=== PATIENT | female | born 1990 | race Caucasian/White ===

== ENCOUNTER 2016-12-06 12:56 | Emergency (ER) | payer OTHER ==
[2016-12-06 13:34] VITALS: BP 133/75; PULSE 74; RESP 16; TEMP 98
--- NOTE | 2016-12-06 13:49 | ED ---
ENT HPI - General Chief complaint: Dental/Oral Stated complaint: Dental pain Time Seen by Provider: 12/06/16 13:29 Source: patient, RN notes reviewed Mode of arrival: ambulatory Limitations: no limitations - History of Present Illness Initial comments: Patient is 26-year-old female presents to the emergency room for evaluation of dental pain. Patient states that she is due to get her left bottom wisdom tooth removed. Patient states that due to insurance she has been unable to. Patient states that she was on amoxicillin for dental pain about 2 weeks ago. Patient states that her dentist also wrote her a prescription for 800 mg of ibuprofen. Patient states she noticed some mild swelling on the side of her left lower jaw. Patient denies recent dental trauma. Patient states ibuprofen is not helping her pain. Patient denies fevers, chills, trouble swallowing, shortness of breath, headache, dizziness, ear pain, nausea, vomiting, abdominal pain. Patient states she feels like her tooth is infected again. - Related Data Home Medications Medication Instructions Recorded Confirmed ALPRAZolam [Xanax] 0.25 mg PO BID PRN 12/06/16 12/06/16 FLUoxetine HCL [PROzac] 20 mg PO DAILY 12/06/16 12/06/16 Previous Rx's Medication Instructions Recorded Clindamycin [Cleocin] 300 mg PO Q6H 7 Days 12/06/16 HYDROcodone/APAP 5-325MG [Gable 1 tab PO Q6HR PRN #12 tab 12/06/16 5-325] Ibuprofen [Motrin] 800 mg PO Q8HR PRN #30 tab 12/06/16 Allergies Allergy/AdvReac Type Severity Reaction Status Date / Time No Known Allergies Allergy Verified 12/06/16 13:51 Review of Systems ROS Statement: Those systems with pertinent positive or pertinent negative responses have been documented in the HPI. ROS Other: All systems not noted in ROS Statement are negative. Past Medical History Past Medical History: No Reported History Additional Past Medical History / Comment(s): anxiety History of Any Multi-Drug Resistant Organisms: None Reported Past Surgical History: No Surgical Hx Reported Past Psychological History: Anxiety, Depression Smoking Status: Current every day smoker Past Alcohol Use History: Occasional Past Drug Use History: None Reported General Exam - General Exam Comments Initial Comments: Sitting on exam chair in no acute distress. Limitations: no limitations General appearance: alert, in no apparent distress Head exam: Present: atraumatic, normocephalic, normal inspection Eye exam: Present: normal appearance Expanded Mouth exam: Present: normal external inspection Teeth exam: Present: dental caries, dental tenderness # (17) Throat exam: normal inspection Neck exam: Present: normal inspection, full ROM. Absent: tenderness, lymphadenopathy Respiratory exam: Present: normal lung sounds bilaterally. Absent: respiratory distress Cardiovascular Exam: Present: regular rate, normal rhythm, normal heart sounds Extremities exam: Present: normal inspection Back exam: Present: normal inspection Neurological exam: Present: alert, oriented X3, CN II-XII intact, normal gait Psychiatric exam: Present: normal affect, normal mood Skin exam: Present: warm, dry, intact, normal color. Absent: rash Course Vital Signs 12/06/16 13:32 Temperature 98.0 F Pulse Rate 74 Respiratory 16 Rate Blood Pressure 133/75 O2 Sat by Pulse 100 Oximetry Medical Decision Making - Medical Decision Making Patient is 26-year-old female presents emergency room for evaluation of dental pain. Place patient on clindamycin since she was on amoxicillin 2 weeks ago. Will send patient home with pain medications and advised her to follow-up with her dentist. Patient states she understands everything that was discussed with her. Return parameters discussed. Case discussed with Dr. Peterson. Disposition Clinical Impression: Pain, dental Disposition: HOME SELF-CARE Condition: Fair Instructions: Toothache (ED) Additional Instructions: Please follow up with a dentist. If you do not have a dentist, you may contact [facility]. Phone number is [phone] for existing clients. For new clients you may call [phone]. Another option is you have is the [facility] dental school. Phone number is [phone]. Medications as directed. [place] gargles. Cold fluids can sometimes help with pain as well. Return to the Emergency Room for any worsening or changing symptoms. Use cold compresses to the outside of the face. Prescriptions: HYDROcodone/APAP 5-325MG [Gable 5-325] 1 tab PO Q6HR PRN #12 tab PRN Reason: Pain Ibuprofen [Motrin] 800 mg PO Q8HR PRN #30 tab PRN Reason: Pain Clindamycin [Cleocin] 300 mg PO Q6H 7 Days Referrals: Ralf Oconnell MD [Primary Care Provider] - 1-2 days Time of Disposition: 13:49
== END 2016-12-06 14:07 | disposition home or self-care (01) ==
LOC: EC 12:56
DX: K02.9 Dental caries, unspecified (principal); F32.9 Major depressive disorder, single episode, unspecified; F17.200 Nicotine dependence, unspecified, uncomplicated; F41.9 Anxiety disorder, unspecified
CPT/HCPCS: 99282

== ENCOUNTER 2017-12-19 12:03 | Emergency (ER) | payer OTHER ==
--- NOTE | 2017-12-19 12:25 | ED ---
Recheck HPI - General Chief Complaint: Recheck/Abnormal Lab/Rx Stated Complaint: flu like symptoms Time Seen by Provider: 12/19/17 12:11 Source: patient, RN notes reviewed Mode of arrival: ambulatory Limitations: no limitations - History of Present Illness Initial Comments: 27-year-old female presented emergency department with chief complaint of cough congestion bodyaches and on-and-off fever for last 5 days. Patient is concerned that she may have influenza as her son was diagnosed here. Patient states her cough is nonproductive. She has been trying some jimf-uwn-jlbualy multisymptom medications with no relief. She also complains of mild right ear pain and sore throat. Patient does complain also sinus congestion. Patient denies any abdominal issues including nausea vomiting diarrhea constipation. Denies any current shortness of breath denies any wheezing. - Related Data Home Medications Medication Instructions Recorded Confirmed ALPRAZolam [Xanax] 0.25 mg PO BID PRN 12/06/16 12/19/17 Omeprazole 20 mg PO DAILY 12/19/17 12/19/17 Previous Rx's Medication Instructions Recorded Azithromycin [Zithromax Z-pack] 0 mg PO DIRECTED #1 pack 12/19/17 methylPREDNISolone [Medrol Dose 4 mg PO DIRECTED #1 pack 12/19/17 Pack] Allergies Allergy/AdvReac Type Severity Reaction Status Date / Time No Known Allergies Allergy Verified 12/19/17 12:42 Review of Systems ROS Statement: Those systems with pertinent positive or pertinent negative responses have been documented in the HPI. ROS Other: All systems not noted in ROS Statement are negative. Past Medical History Past Medical History: No Reported History Additional Past Medical History / Comment(s): anxiety History of Any Multi-Drug Resistant Organisms: None Reported Past Surgical History: No Surgical Hx Reported Past Psychological History: Anxiety, Depression Smoking Status: Current every day smoker Past Alcohol Use History: Occasional Past Drug Use History: None Reported General Exam Limitations: no limitations General appearance: alert, in no apparent distress Head exam: Present: atraumatic, normocephalic, normal inspection Eye exam: Present: normal appearance, PERRL, EOMI. Absent: scleral icterus, conjunctival injection, periorbital swelling ENT exam: Present: normal exam, normal oropharynx, mucous membranes moist, TM's normal bilaterally, normal external ear exam Neck exam: Present: normal inspection, full ROM. Absent: tenderness, meningismus, lymphadenopathy Respiratory exam: Present: normal lung sounds bilaterally. Absent: respiratory distress, wheezes, rales, rhonchi, stridor Cardiovascular Exam: Present: regular rate, normal rhythm, normal heart sounds. Absent: systolic murmur, diastolic murmur, rubs, gallop, clicks Skin exam: Present: warm, dry, intact, normal color. Absent: rash Course Vital Signs 12/19/17 12/19/17 12:07 12:56 Temperature 97.9 F Pulse Rate 78 Respiratory 20 16 Rate Blood Pressure 136/90 O2 Sat by Pulse 98 Oximetry Medical Decision Making - Medical Decision Making 27-year-old female presented to emergency Department chief complaint cough congestion fever or chills patient's influenza is negative chest x-ray reviewed no evidence of pneumonia. Patient we treated for acute bronchitis this time. Patient did report fevers for last 5 days. Patient has NO KNOWN DRUG ALLERGIES. Patient be discharged with Medrol Dosepak, azithromycin and advised take bjwi-cke-juesuli Robitussin. - Lab Data Lab Results 12/19/17 Range/Units 12:15 Influenza Type A RNA Not Detected (Not Detectd) Influenza Type B (PCR) Not Detected (Not Detectd) Disposition Clinical Impression: Acute bronchitis Disposition: HOME SELF-CARE Condition: Stable Instructions: Acute Bronchitis (ED) Additional Instructions: Please return to the Emergency Department if symptoms worsen or any other concerns. Prescriptions: Azithromycin [Zithromax Z-pack] 0 mg PO DIRECTED #1 pack methylPREDNISolone [Medrol Dose Pack] 4 mg PO DIRECTED #1 pack Referrals: Ralf Oconnell MD [Primary Care Provider] - 1-2 days Time of Disposition: 13:25
--- NOTE | 2017-12-19 13:23 | XR ---
EXAMINATION TYPE: XR chest 2V DATE OF EXAM: 12/19/2017 COMPARISON: NONE HISTORY: Cough sore throat TECHNIQUE: Frontal and lateral views of the chest are obtained. FINDINGS: Heart and mediastinum are normal. Lungs are clear. Diaphragm is normal. Bony thorax appear s normal. IMPRESSION: Normal chest
[2017-12-19 13:41] VITALS: BP 128/68; PULSE 67; RESP 18; TEMP 98.3
== END 2017-12-19 13:41 | disposition home or self-care (01) ==
LOC: EC 12:03
DX: J20.9 Acute bronchitis, unspecified (principal); F17.200 Nicotine dependence, unspecified, uncomplicated; Z79.899 Other long term (current) drug therapy
CPT/HCPCS: 71046; 87502; 99283

== ENCOUNTER 2018-03-12 12:54 | Emergency (ER) | payer OTHER ==
[2018-03-12 13:00] VITALS: BP 131/78; PULSE 89; RESP 18; TEMP 96.8
[2018-03-12 13:25] LABS: Appearance,Urine Clear (Clear); Bacteria,Urine Rare /hpf; Bilirubin,Urine Negative (Negative); Blood,Urine Negative (Negative); Color,Urine Yellow; Glucose,Urine (UA) Negative (Negative); Ketones,Urine Negative (Negative); Leukocyte Esterase,Urine Trace (Negative); Nitrite,Urine Negative (Negative); PH, Urine 6.5 (5.0-8.0); Protein,Urine Negative (Negative); RBC,Urine <1 /hpf (0-5); Specific Gravity,Urine 1.014 (1.001-1.035); Squamous Epithelial Cell,Urine 5 /hpf (0-4); Urobilinogen,Urine <2.0 mg/dL (<2.0); WBC,Urine 1 /hpf (0-5)
--- NOTE | 2018-03-12 13:38 | ED ---
General Adult HPI - General Chief complaint: Recheck/Abnormal Lab/Rx Stated complaint: Nauseated, Wants test Time Seen by Provider: 03/12/18 13:03 Source: patient, RN notes reviewed Mode of arrival: ambulatory Limitations: no limitations - History of Present Illness Initial comments: 27-year-old female presents to the emergency department for a chief complaint of concern for times one week. patient states she would just like a test. Patient states she had her period a week ago and it was 4 days late. Patient states it only lasted for one day. Patient states she ran out of control about a week ago. Patient states she took 3 [id number]-[id number] tests which were negative. Patient wanted to be sure so came to the emergency department for test. Patient states she has mild nausea only when walking. Patient states she thinks this may be related to . Patient denies any burning or pain with urination. Patient has no other complaints at this time including shortness of breath, chest pain, abdominal pain, nausea or vomiting, headache, or visual changes. - Related Data Home Medications Medication Instructions Recorded Confirmed ALPRAZolam [Xanax] 0.5 mg PO BID PRN 12/06/16 03/12/18 Ibuprofen [Motrin Ib] 800 mg PO Q8HR PRN 03/12/18 03/12/18 Lamictal Unknown Dose DAILY 03/12/18 Prozac Unknown Dose DAILY 03/12/18 Allergies Allergy/AdvReac Type Severity Reaction Status Date / Time No Known Allergies Allergy Verified 03/12/18 13:00 Review of Systems ROS Statement: Those systems with pertinent positive or pertinent negative responses have been documented in the HPI. ROS Other: All systems not noted in ROS Statement are negative. Past Medical History Past Medical History: No Reported History Additional Past Medical History / Comment(s): anxiety History of Any Multi-Drug Resistant Organisms: None Reported Past Surgical History: No Surgical Hx Reported Past Psychological History: Anxiety, Depression, PTSD Smoking Status: Current every day smoker Past Alcohol Use History: Occasional Past Drug Use History: None Reported General Exam Limitations: no limitations General appearance: alert, in no apparent distress Head exam: Present: atraumatic, normocephalic, normal inspection Respiratory exam: Present: normal lung sounds bilaterally. Absent: respiratory distress, wheezes, rales, rhonchi, stridor Cardiovascular Exam: Present: regular rate, normal rhythm, normal heart sounds. Absent: systolic murmur, diastolic murmur, rubs, gallop, clicks GI/Abdominal exam: Present: soft, normal bowel sounds. Absent: distended, tenderness, guarding, rebound, rigid Course Vital Signs 03/12/18 12:56 Temperature 96.8 F L Pulse Rate 89 Respiratory 18 Rate Blood Pressure 131/78 O2 Sat by Pulse 98 Oximetry Medical Decision Making - Medical Decision Making 27-year-old female presents to the emergency determine for a chief complaint of concern for . Patient states she would like a test. She states she has been nauseated for the past 2 days. Patient states she is only nauseous when she walks. Patient had her period a week ago but it only lasted for a day and was 4 days late. Patient denies any abdominal pain. No urinary symptoms. HCG and urinalysis were ordered which were both negative. Patient does not want a workup at this time for nausea and will follow up with her primary care provider. She will return to the emergency Department if she has any worsening symptoms. - Lab Data Lab Results 03/12/18 03/12/18 Range/Units 13:15 13:15 Urine Color Yellow Urine Appearance Clear (Clear) Urine pH 6.5 (5.0-8.0) Ur Specific Calvin 1.014 (1.001-1.035) Urine Protein Negative (Negative) Urine Glucose (UA) Negative (Negative) Urine Ketones Negative (Negative) Urine Blood Negative (Negative) Urine Nitrite Negative (Negative) Urine Bilirubin Negative (Negative) Urine Urobilinogen <2.0 (<2.0) mg/dL Ur Leukocyte Esterase Trace H (Negative) Urine RBC <1 (0-5) /hpf Urine WBC 1 (0-5) /hpf Ur Squamous Epith Cells 5 H (0-4) /hpf Urine Bacteria Rare H (None) /hpf Urine HCG, Qual Not Detected (Not Detectd) Disposition Clinical Impression: Negative test Disposition: HOME SELF-CARE Condition: Good Instructions: Acute Nausea and Vomiting (ED) Additional Instructions: Please follow up with primary care provider in one to 2 days. Return to the emergency department if you have any worsening symptoms. Is patient prescribed a controlled substance at d/c from ED?: No Referrals: Andrea Lloyd DO [Primary Care Provider] - 1-2 days Time of Disposition: 13:37
== END 2018-03-12 13:43 | disposition home or self-care (01) ==
LOC: EC 12:54
DX: Z32.02 Encounter for pregnancy test, result negative (principal); R11.0 Nausea; F32.9 Major depressive disorder, single episode, unspecified; F41.9 Anxiety disorder, unspecified; F17.200 Nicotine dependence, unspecified, uncomplicated; Z79.899 Other long term (current) drug therapy
CPT/HCPCS: 81001; 81025; 99283

== ENCOUNTER 2018-04-01 14:12 | Emergency (ER) | payer OTHER ==
[2018-04-01 14:34] VITALS: RESP 18
[2018-04-01 15:34] LABS: Appearance,Urine Cloudy (Clear); Bacteria,Urine Few /hpf; Bilirubin,Urine Negative (Negative); Blood,Urine Negative (Negative); Color,Urine Light Yellow; Glucose,Urine (UA) Negative (Negative); Ketones,Urine Negative (Negative); Leukocyte Esterase,Urine Large (Negative); Mucus,Urine Rare /hpf; Nitrite,Urine Negative (Negative); PH, Urine 6.5 (5.0-8.0); Protein,Urine Negative (Negative); RBC,Urine 2 /hpf (0-5); Specific Gravity,Urine 1.013 (1.001-1.035); Squamous Epithelial Cell,Urine 9 /hpf (0-4); Urobilinogen,Urine <2.0 mg/dL (<2.0); WBC,Urine 3 /hpf (0-5)
[2018-04-01] MEDS ORDERED: SODIUM CHLORIDE 0.9% 1,000 ML IV ONE (15:59)
[2018-04-01] MEDS ORDERED: SODIUM CHLORIDE 0.9% 500 ML IV ONE (15:59)
--- NOTE | 2018-04-01 16:04 | US ---
EXAMINATION TYPE: Transabdominal DATE OF EXAM: 01/18/18 COMPARISON: NONE CLINICAL HISTORY: Cramping . EXAM PERFORMED: Transvaginal (TV) and Transabdominal (TA) EXAM MEASUREMENTS: GESTATIONAL AGE / DATING Physician Established: Not yet established Dates by LMP: (5 weeks/0 days) EDC: 12/02/2018 Dates by First Scan: No previous this is first scan Dates by Current Scan for: No pole or yolk sac visualized, by possible early gestational sac on ly (5 weeks/4 days) EDC: 11/28/2018 MATERNAL ANATOMY Uterus: 7.7 x 4.5 x 4.7 cm Right Ovary: 2.7 x 1.8 x 1.7 cm Left Ovary: 4.1 x 2.6 x 2.1 cm Post CDS / Adnexa: Moderate amount of free fluid visualized within the posterior cul de sac and left adnexa Presence of free fluid: Yes Presence of corpus luteal cyst: Yes Presence of subchorionic bleed: No GESTATION / SURVEY MSD: 1.33 cm (5 weeks/4 days) Date of LMP: 02/25/2018 Beta HcG (if available): Not available at this time Regular-appearing anechoic elongated area visualized within the endometrium. Possible early gestation al sac vs pseudogestational sac of ectopic . No pole or yolk sac visualized at this ti me. Within the left ovary, there are two complex appearing areas. The first measures 1.4 x 1.6 x 1.8 cm. The second measures 2.0 x 1.8 x 1.7 cm. IMPRESSION: Irregular-appearing intraendometrial fluid collection with 2 complex left adnexal lesions measuring u p to 1.8 and 1.2 cm. Moderate amount of free fluid within the pelvis is also seen. Therefore findings are concerning for ectopic although correlation with beta hCG is recommended as this could less likely represent early intrauterine . Findings were communicated with the ordering ER physician by Dr. Keller at 1600 on 04/01/2018.
[2018-04-01 16:42] LABS: Basophils % (A) 1 %; Eosinophils # (A) 0.2 k/uL (0-0.7); Eosinophils % (A) 2 %; HGB 14.5 gm/dL (11.4-16.0); Lymphocytes # (A) 2.5 k/uL (1.0-4.8); Lymphocytes % (A) 32 %; MCH 32.2 pg (25.0-35.0); MCHC 33.9 g/dL (31.0-37.0); MCV 95.2 fL (80.0-100.0); Mean Platelet Volume 7.3; Monocytes # (A) 0.4 k/uL (0-1.0); Monocytes % (A) 5 %; Neutrophils # (A) 4.4 k/uL (1.3-7.7); Neutrophils % (A) 59 %; Platelet Count 209 k/uL (150-450); RBC 4.51 m/uL (3.80-5.40); RDW 13.6 % (11.5-15.5); WBC 7.6 k/uL (3.8-10.6)
[2018-04-01 16:54] LABS: ALT 35 U/L (9-52); AST 19 U/L (14-36); Albumin 4.1 g/dL (3.5-5.0); Alkaline Phosphatase 51 U/L (38-126); Anion Gap 11 mmol/L; Blood Urea Nitrogen 10 mg/dL (7-17); Calcium 9.6 mg/dL (8.4-10.2); Carbon Dioxide 23 mmol/L (22-30); Chloride 104 mmol/L (98-107); Glucose 87 mg/dL (74-99); Sodium 138 mmol/L (137-145); Total Bilirubin 0.2 mg/dL (0.2-1.3); Total Protein 6.4 g/dL (6.3-8.2)
[2018-04-01 16:55] LABS: Partial Thromboplastin Time 23.5 sec (22.0-30.0); Prothrombin Time 10.2 sec (9.0-12.0)
--- NOTE | 2018-04-01 17:09 | ED ---
General Adult HPI - General Chief complaint: Abdominal Pain Stated complaint: Pregnan and cramping Time Seen by Provider: 04/01/18 14:57 Source: patient, RN notes reviewed, old records reviewed Mode of arrival: ambulatory Limitations: no limitations - History of Present Illness Initial comments: This is a 27-year-old female the ER for evaluation of abdominal pain and . Patient has history of prior , 1 prior this is her second , different partner. Patient states she was just a long bus ride into the [place] head some significant cramping symptoms significant abdominal pain. No bleeding, no vaginal bleeding. - Related Data Home Medications Medication Instructions Recorded Confirmed ALPRAZolam [Xanax] 0.5 mg PO BID PRN 12/06/16 04/01/18 FLUoxetine HCL [PROzac] 60 mg PO DAILY 04/01/18 04/01/18 lamoTRIgine [LaMICtal] 100 mg PO DAILY 04/01/18 04/01/18 Allergies Allergy/AdvReac Type Severity Reaction Status Date / Time No Known Allergies Allergy Verified 04/01/18 15:15 Review of Systems ROS Statement: Those systems with pertinent positive or pertinent negative responses have been documented in the HPI. ROS Other: All systems not noted in ROS Statement are negative. Past Medical History Past Medical History: No Reported History Additional Past Medical History / Comment(s): anxiety History of Any Multi-Drug Resistant Organisms: None Reported Past Surgical History: No Surgical Hx Reported Past Psychological History: Anxiety, Depression, PTSD Smoking Status: Current every day smoker Past Alcohol Use History: Occasional Past Drug Use History: None Reported General Exam Limitations: no limitations General appearance: alert, in no apparent distress Head exam: Present: atraumatic, normocephalic, normal inspection Eye exam: Present: normal appearance, PERRL, EOMI. Absent: scleral icterus, conjunctival injection, periorbital swelling ENT exam: Present: normal exam, mucous membranes moist Neck exam: Present: normal inspection. Absent: tenderness, meningismus, lymphadenopathy Respiratory exam: Present: normal lung sounds bilaterally. Absent: respiratory distress, wheezes, rales, rhonchi, stridor Cardiovascular Exam: Present: regular rate, normal rhythm, normal heart sounds. Absent: systolic murmur, diastolic murmur, rubs, gallop, clicks GI/Abdominal exam: Present: soft, normal bowel sounds. Absent: distended, tenderness, guarding, rebound, rigid Extremities exam: Present: normal inspection, full ROM, normal capillary refill. Absent: tenderness, pedal edema, joint swelling, calf tenderness Back exam: Present: normal inspection Neurological exam: Present: alert, oriented X3, CN II-XII intact Psychiatric exam: Present: normal affect, normal mood Skin exam: Present: warm, dry, intact, normal color. Absent: rash Course Vital Signs 04/01/18 14:32 Temperature 98.5 F Pulse Rate 68 Respiratory 18 Rate Blood Pressure 122/80 O2 Sat by Pulse 98 Oximetry - Reevaluation(s) Reevaluation #1: 04/01/18 17:08 Patient has improvement of pain Reevaluation #2: 04/01/18 17:23 Spoke with OB regarding patient, patient is aware patient will follow-up with results this week Medical Decision Making - Medical Decision Making 27 female the ER for evaluation of nonspecific abdominal pain, no vaginal bleeding. Vital signs normal and stable patient does have positive test positive pain. Patient will follow up with OB regarding possible ectopic versus early - Lab Data Result diagrams: 04/01/18 16:30 04/01/18 16:30 Lab Results 04/01/18 04/01/18 04/01/18 Range/Units 15:21 15:21 16:30 WBC (3.8-10.6) k/uL RBC (3.80-5.40) m/uL Hgb (11.4-16.0) gm/dL Hct (34.0-46.0) % MCV (80.0-100.0) fL MCH (25.0-35.0) pg MCHC (31.0-37.0) g/dL RDW (11.5-15.5) % Plt Count (150-450) k/uL Neutrophils % % Lymphocytes % % Monocytes % % Eosinophils % % Basophils % % Neutrophils # (1.3-7.7) k/uL Lymphocytes # (1.0-4.8) k/uL Monocytes # (0-1.0) k/uL Eosinophils # (0-0.7) k/uL Basophils # (0-0.2) k/uL PT (9.0-12.0) sec INR (<1.2) APTT (22.0-30.0) sec Sodium (137-145) mmol/L Potassium (3.5-5.1) mmol/L Chloride (98-107) mmol/L Carbon Dioxide (22-30) mmol/L Anion Gap mmol/L BUN (7-17) mg/dL Creatinine (0.52-1.04) mg/dL Est GFR (CKD-EPI)AfAm (>60 ml/min/1.73 sqM) Est GFR (CKD-EPI)NonAf (>60 ml/min/1.73 sqM) Glucose (74-99) mg/dL Calcium (8.4-10.2) mg/dL Total Bilirubin (0.2-1.3) mg/dL AST (14-36) U/L ALT (9-52) U/L Alkaline Phosphatase (38-126) U/L Total Protein (6.3-8.2) g/dL Albumin (3.5-5.0) g/dL HCG, Quant mIU/mL Urine Color Light Yellow Urine Appearance Cloudy H (Clear) Urine pH 6.5 (5.0-8.0) Ur Specific Mulino 1.013 (1.001-1.035) Urine Protein Negative (Negative) Urine Glucose (UA) Negative (Negative) Urine Ketones Negative (Negative) Urine Blood Negative (Negative) Urine Nitrite Negative (Negative) Urine Bilirubin Negative (Negative) Urine Urobilinogen <2.0 (<2.0) mg/dL Ur Leukocyte Esterase Large H (Negative) Urine RBC 2 (0-5) /hpf Urine WBC 3 (0-5) /hpf Ur Squamous Epith Cells 9 H (0-4) /hpf Urine Bacteria Few H (None) /hpf Urine Mucus Rare H (None) /hpf Urine HCG, Qual Detected (Not Detectd) Blood Type B Positive Blood Type Recheck No Antibody Screen NEGATIVE 04/01/18 04/01/18 04/01/18 Range/Units 16:30 16:30 16:30 WBC 7.6 (3.8-10.6) k/uL RBC 4.51 (3.80-5.40) m/uL Hgb 14.5 (11.4-16.0) gm/dL Hct 43.0 (34.0-46.0) % MCV 95.2 (80.0-100.0) fL MCH 32.2 (25.0-35.0) pg MCHC 33.9 (31.0-37.0) g/dL RDW 13.6 (11.5-15.5) % Plt Count 209 (150-450) k/uL Neutrophils % 59 % Lymphocytes % 32 % Monocytes % 5 % Eosinophils % 2 % Basophils % 1 % Neutrophils # 4.4 (1.3-7.7) k/uL Lymphocytes # 2.5 (1.0-4.8) k/uL Monocytes # 0.4 (0-1.0) k/uL Eosinophils # 0.2 (0-0.7) k/uL Basophils # 0.0 (0-0.2) k/uL PT 10.2 (9.0-12.0) sec INR 1.0 (<1.2) APTT 23.5 (22.0-30.0) sec Sodium 138 (137-145) mmol/L Potassium 4.0 (3.5-5.1) mmol/L Chloride 104 (98-107) mmol/L Carbon Dioxide 23 (22-30) mmol/L Anion Gap 11 mmol/L BUN 10 (7-17) mg/dL Creatinine 0.50 L (0.52-1.04) mg/dL Est GFR (CKD-EPI)AfAm >90 (>60 ml/min/1.73 sqM) Est GFR (CKD-EPI)NonAf >90 (>60 ml/min/1.73 sqM) Glucose 87 (74-99) mg/dL Calcium 9.6 (8.4-10.2) mg/dL Total Bilirubin 0.2 (0.2-1.3) mg/dL AST 19 (14-36) U/L ALT 35 (9-52) U/L Alkaline Phosphatase 51 (38-126) U/L Total Protein 6.4 (6.3-8.2) g/dL Albumin 4.1 (3.5-5.0) g/dL HCG, Quant 461.4 mIU/mL Urine Color Urine Appearance (Clear) Urine pH (5.0-8.0) Ur Specific Mulino (1.001-1.035) Urine Protein (Negative) Urine Glucose (UA) (Negative) Urine Ketones (Negative) Urine Blood (Negative) Urine Nitrite (Negative) Urine Bilirubin (Negative) Urine Urobilinogen (<2.0) mg/dL Ur Leukocyte Esterase (Negative) Urine RBC (0-5) /hpf Urine WBC (0-5) /hpf Ur Squamous Epith Cells (0-4) /hpf Urine Bacteria (None) /hpf Urine Mucus (None) /hpf Urine HCG, Qual (Not Detectd) Blood Type Blood Type Recheck Antibody Screen - Radiology Data Radiology results: report reviewed (Ultrasound OB shows possible gestational sac ), image reviewed Disposition Clinical Impression: Positive test, Abdominal pain affecting Disposition: HOME SELF-CARE Condition: Good Instructions: Abdominal Pain in (ED) Is patient prescribed a controlled substance at d/c from ED?: No Referrals: Julien Lloyd DO [Primary Care Provider] - 1-2 days
[2018-04-01 17:10] LABS: HCG,Quantitative Serum 461.4 mIU/mL
[2018-04-01 18:02] VITALS: BP 139/87; PULSE 89; TEMP 98.9
== END 2018-04-01 18:03 | disposition home or self-care (01) ==
LOC: EC 14:12
DX: O26.899 Other specified pregnancy related conditions, unspecified trimester (principal); R10.9 Unspecified abdominal pain; Z32.01 Encounter for pregnancy test, result positive; O99.340 Other mental disorders complicating pregnancy, unspecified trimester; F32.9 Major depressive disorder, single episode, unspecified; F41.9 Anxiety disorder, unspecified; O99.330 Smoking (tobacco) complicating pregnancy, unspecified trimester; F17.200 Nicotine dependence, unspecified, uncomplicated; Z79.899 Other long term (current) drug therapy; Z3A.00 Weeks of gestation of pregnancy not specified
CPT/HCPCS: 36415; 76801; 76817; 80053; 81001; 81025; 84702; 85025; 85610; 85730; 86850; 86900; 86901; 87086; 96360; 96361; 99284

== ENCOUNTER 2018-04-14 15:46 | Emergency (ER) | payer OTHER ==
[2018-04-14 15:58] VITALS: RESP 18
[2018-04-14] MEDS ORDERED: SODIUM CHLORIDE 0.9% 2,000 ML IV STA (16:01)
[2018-04-14] MEDS ORDERED: METOCLOPRAMIDE 5 MG/ML 2 ML VIAL IVP STA (16:01)
[2018-04-14 16:50] LABS: Basophils % (A) 0 %; Eosinophils # (A) 0.1 k/uL (0-0.7); Eosinophils % (A) 1 %; HCT 42.7 % (34.0-46.0); HGB 14.7 gm/dL (11.4-16.0); Lymphocytes # (A) 2.3 k/uL (1.0-4.8); Lymphocytes % (A) 26 %; MCH 32.1 pg (25.0-35.0); MCHC 34.3 g/dL (31.0-37.0); MCV 93.4 fL (80.0-100.0); Mean Platelet Volume 7.3; Monocytes # (A) 0.4 k/uL (0-1.0); Monocytes % (A) 5 %; Neutrophils # (A) 6.1 k/uL (1.3-7.7); Neutrophils % (A) 67 %; Platelet Count 237 k/uL (150-450); RBC 4.57 m/uL (3.80-5.40); RDW 12.8 % (11.5-15.5); WBC 9.2 k/uL (3.8-10.6)
[2018-04-14 16:55] LABS: Appearance,Urine Clear (Clear); Bacteria,Urine Rare /hpf; Bilirubin,Urine Negative (Negative); Blood,Urine Negative (Negative); Color,Urine Yellow; Glucose,Urine (UA) Negative (Negative); Ketones,Urine Negative (Negative); Leukocyte Esterase,Urine Small (Negative); Mucus,Urine Rare /hpf; Nitrite,Urine Negative (Negative); PH, Urine 6.5 (5.0-8.0); Protein,Urine Negative (Negative); RBC,Urine <1 /hpf (0-5); Specific Gravity,Urine 1.019 (1.001-1.035); Squamous Epithelial Cell,Urine 3 /hpf (0-4); Urobilinogen,Urine <2.0 mg/dL (<2.0); WBC,Urine 2 /hpf (0-5)
[2018-04-14 16:59] LABS: Carbon Dioxide 21 mmol/L (22-30); Chloride 104 mmol/L (98-107); Glucose 85 mg/dL (74-99); Potassium 4.1 mmol/L (3.5-5.1); Sodium 137 mmol/L (137-145)
[2018-04-14 17:00] LABS: ALT 35 U/L (9-52); AST 19 U/L (14-36); Albumin 4.2 g/dL (3.5-5.0); Alkaline Phosphatase 41 U/L (38-126); Amylase 53 U/L (30-110); Anion Gap 12 mmol/L; Blood Urea Nitrogen 14 mg/dL (7-17); Calcium 9.1 mg/dL (8.4-10.2); Lipase 71 U/L (23-300); Total Bilirubin 0.3 mg/dL (0.2-1.3); Total Protein 6.5 g/dL (6.3-8.2)
--- NOTE | 2018-04-14 17:03 | ED ---
Nausea/Vomiting/Diarrhea HPI - General Chief complaint: Nausea/Vomiting/Diarrhea Stated complaint: Vomiting-7 weeks Time Seen by Provider: 04/14/18 15:59 Source: patient, RN notes reviewed Mode of arrival: ambulatory Limitations: no limitations - History of Present Illness Initial comments: 27-year-old female presents emergency Department chief complaint of nausea vomiting early . Patient states that she typically is sick all morning feels better by early afternoon. Patient states that her BLOCK HANDLER advised to come emergency department to make sure she is not dehydrated. Patient states that she certainly felt better at this time. She denies any vaginal bleeding or vaginal discharge. She has no abdominal pain denies fever, chills, back pain, flank pain. Patient is A0 and currently seen Dr. Irving. - Related Data Previous Rx's Medication Instructions Recorded Cephalexin [Keflex] 500 mg PO Q8HR #15 cap 04/14/18 Allergies Allergy/AdvReac Type Severity Reaction Status Date / Time No Known Allergies Allergy Verified 04/14/18 16:40 Review of Systems ROS Statement: Those systems with pertinent positive or pertinent negative responses have been documented in the HPI. ROS Other: All systems not noted in ROS Statement are negative. Past Medical History Past Medical History: No Reported History Additional Past Medical History / Comment(s): anxiety History of Any Multi-Drug Resistant Organisms: None Reported Past Surgical History: No Surgical Hx Reported Past Psychological History: Anxiety, Depression, PTSD Smoking Status: Former smoker Past Alcohol Use History: Occasional Past Drug Use History: None Reported General Exam Limitations: no limitations General appearance: alert, in no apparent distress Head exam: Present: atraumatic, normocephalic, normal inspection ENT exam: Present: normal oropharynx, mucous membranes moist Neck exam: Present: normal inspection. Absent: tenderness, meningismus, lymphadenopathy Respiratory exam: Present: normal lung sounds bilaterally. Absent: respiratory distress, wheezes, rales, rhonchi, stridor Cardiovascular Exam: Present: regular rate, normal rhythm, normal heart sounds. Absent: systolic murmur, diastolic murmur, rubs, gallop, clicks GI/Abdominal exam: Present: soft, normal bowel sounds. Absent: distended, tenderness, guarding, rebound, rigid Back exam: Absent: CVA tenderness (R), CVA tenderness (L) Skin exam: Present: warm, dry, intact, normal color. Absent: rash Course Vital Signs 04/14/18 15:56 Temperature 97 F L Pulse Rate 88 Respiratory 18 Rate Blood Pressure 120/71 O2 Sat by Pulse 99 Oximetry Medical Decision Making - Medical Decision Making 27-year-old female presented from for nausea vomiting . Patient was hydrated given one dose of antiemetics. Patient is advised to use over-the- counter Unisom and B6 vitamin as directed by her BLOCK HANDLER. Patient is advised to eat small frequent meals, keep crackers with her at all times to help her nausea. Patient we treated for asymptomatic bacteriuria. - Lab Data Result diagrams: 04/14/18 16:31 Lab Results 04/14/18 04/14/18 Range/Units 16:31 16:31 WBC 9.2 (3.8-10.6) k/uL RBC 4.57 (3.80-5.40) m/uL Hgb 14.7 (11.4-16.0) gm/dL Hct 42.7 (34.0-46.0) % MCV 93.4 (80.0-100.0) fL MCH 32.1 (25.0-35.0) pg MCHC 34.3 (31.0-37.0) g/dL RDW 12.8 (11.5-15.5) % Plt Count 237 (150-450) k/uL Neutrophils % 67 % Lymphocytes % 26 % Monocytes % 5 % Eosinophils % 1 % Basophils % 0 % Neutrophils # 6.1 (1.3-7.7) k/uL Lymphocytes # 2.3 (1.0-4.8) k/uL Monocytes # 0.4 (0-1.0) k/uL Eosinophils # 0.1 (0-0.7) k/uL Basophils # 0.0 (0-0.2) k/uL Urine Color Yellow Urine Appearance Clear (Clear) Urine pH 6.5 (5.0-8.0) Ur Specific [place] 1.019 (1.001-1.035) Urine Protein Negative (Negative) Urine Glucose (UA) Negative (Negative) Urine Ketones Negative (Negative) Urine Blood Negative (Negative) Urine Nitrite Negative (Negative) Urine Bilirubin Negative (Negative) Urine Urobilinogen <2.0 (<2.0) mg/dL Ur Leukocyte Esterase Small H (Negative) Urine RBC <1 (0-5) /hpf Urine WBC 2 (0-5) /hpf Ur Squamous Epith Cells 3 (0-4) /hpf Urine Bacteria Rare H (None) /hpf Urine Mucus Rare H (None) /hpf Disposition Clinical Impression: Nausea/vomiting in , Asymptomatic bacteriuria during Disposition: HOME SELF-CARE Condition: Stable Instructions: Nausea and Vomiting in (ED) Additional Instructions: Please return to the Emergency Department if symptoms worsen or any other concerns. Prescriptions: Cephalexin [Keflex] 500 mg PO Q8HR #15 cap Is patient prescribed a controlled substance at d/c from ED?: No Referrals: Andrea Lloyd DO [Primary Care Provider] - 1-2 days Time of Disposition: 17:03
[2018-04-14 17:45] VITALS: BP 118/62; PULSE 63; TEMP 97.4
== END 2018-04-14 17:47 | disposition home or self-care (01) ==
LOC: EC 15:46
DX: O21.9 Vomiting of pregnancy, unspecified (principal); O99.89 Other specified diseases and conditions complicating pregnancy, childbirth and the puerperium; R82.71 Bacteriuria; Z87.891 Personal history of nicotine dependence; Z3A.01 Less than 8 weeks gestation of pregnancy
CPT/HCPCS: 36415; 80053; 82150; 83690; 85025; 81001; 99284; 96360; J2765

== ENCOUNTER → 2018-04-22 | Outpatient (CLI) | payer OTHER ==
[2018-04-22 13:46] LABS: HCT 38.4 % (34.0-46.0); HGB 13.3 gm/dL (11.4-16.0); MCH 32.1 pg (25.0-35.0); MCHC 34.7 g/dL (31.0-37.0); MCV 92.7 fL (80.0-100.0); Mean Platelet Volume 7.2; Platelet Count 250 k/uL (150-450); RBC 4.14 m/uL (3.80-5.40); RDW 12.8 % (11.5-15.5)
[2018-04-22 13:48] LABS: Glucose 86 mg/dL (74-99)
--- NOTE | 2018-04-22 14:37 | US ---
EXAMINATION TYPE: Transabdominal DATE OF EXAM: 01/18/18 COMPARISON: NONE CLINICAL HISTORY: Z36 FOLLOW UP PREV ABN. EXAM PERFORMED: EXAM MEASUREMENTS: GESTATIONAL AGE / DATING Physician Established: Not yet established Dates by LMP: (7 weeks/ 2days) EDC: 12/07/18 Dates by First Scan: No previous this is first scan (Dates by Current Scan for: 7 weeks/1 days) EDC: 12/08/18 MATERNAL ANATOMY Uterus: 11.4 x 5.5 x 7.4cm Right Ovary: 2.2 x 1.5 x 2.5 Left Ovary: 3.9 x 2.0 x 2.6 Post CDS / Adnexa: small amount of free fluid Presence of free fluid: small amount in cul de sac, adjacent to left ovary Presence of corpus luteal cyst: 1.6 x 1.6 x 1.7cm Presence of subchorionic bleed: no GESTATION / SURVEY CRL: 1.0 (7 weeks/1 days) Yolk Sac (normal less than 6mm): 3mm Heart Rate: 147 bpm Rhythm: Normal IUP: Viable IUP Date of LMP: 03/02/18 IMPRESSION: Single viable intrauterine corresponding to an ultrasound age of 7 weeks 1 day with estimat ed date of delivery 12/08/2018
[2018-04-22 20:36] LABS: HIV AB P24 Non-Reactive (Non-Reactive); HIV P24 AG Non-Reactive (Non-Reactive)
[2018-04-23 08:28] LABS: Toxoplasma Antibody (IgG) <3.0 IU/mL (<7.2); Toxoplasma Antibody (IgM) <3.0 AU/mL (<8.0)
== END | disposition home or self-care (01) ==
LOC: RADUSWWP 12:41
PROVIDERS: ATTEND Obstetrics & Gynecology
DX: Z36.89 Encounter for other specified antenatal screening (principal); O26.811 Pregnancy related exhaustion and fatigue, first trimester; Z3A.01 Less than 8 weeks gestation of pregnancy
CPT/HCPCS: 36415; 76801; 82565; 82947; 85027; 86762; 86777; 86778; 86780; 86850; 86900; 86901; 87340; 87390

== ENCOUNTER 2018-10-27 12:27 | Outpatient (CLI) | payer OTHER ==
[2018-10-27 12:53] VITALS: BP 123/74; PULSE 85; RESP 16; TEMP 99.1
--- NOTE | 2018-10-27 17:59 | P.MSEPDOC ---
Presenting Problems - Arrival Data Date of Arrival on Unit: 10/27/18 Time of Arrival on Unit: 12:36 Mode of Transport: Ambulatory - Complaint OB-Reason for Admission/Chief Complaint: Rule Out PROM Comment: pt arrived c/o dampness in underwear and mucus discharge Medical History - Information : 2 Para: 1 Term: 0 : 0 Abortions: Spontaneous or Elective: 0 Number of Living Children: 1 - Gestational Age Gestational Age by TONY (wks/days): 34 Weeks and 1 Days - History Complications: Smoker Review of Systems - Review of Systems Constitutional: No problems Breast: No problems ENT: No problems Cardiovascular: No problems Respiratory: No problems Gastrointestinal: No problems Genitourinary: No problems Musculoskeletal: No problems Neurological: No problems Skin: No problems Vital Signs - Temperature Temperature: 99.1 F Temperature Source: Oral - Pulse Right Brachial Pulse Rate: 85 Pulse Assessment Method: Automatic Cuff - Respirations Respiratory Rate: 16 Oxygen Delivery Method: Room Air O2 Sat by Pulse Oximetry: 97 - Blood Pressure Right Arm Blood Pressure: 123/74 Blood Pressure Mean: 90 Blood Pressure Source: Automatic Cuff Medical Screen Scoring (Post) - Cervical Exam Dilation: 0 cm = 0 Membranes: Intact - Uterine Contractions Frequency: N/A Duration: N/A Intensity: N/A - Maternal Vital Signs Maternal Temperature: N/A Maternal Blood Pressure: N/A Signs of Preeclampsia: N/A Maternal Respirations: N/A - Pain Assessment Pain Scale Used: Numeric (1 - 10) Pain Intensity: 1 Pain Management Goal: 1 Pain Behavior: Vocalization - Maternal Trauma Maternal Trauma: N/A - Assessment Heart Rate: 120 Heart Rate - NICHD Category: Category I (Normal) = 0 NST: Reactive Position: N/A Station: N/A - Total Score Total Score (Post): 0 - Post Treatment Level of Risk Post Treatment Level of Risk: Low (0-5) Physician Notification (Post) - Physician Notified Physician Notified Date: 10/27/18 Physician Notified Time: 13:40 Spoke With: dr leon New Order Received: Yes - Notification Comment Comment: may discharge home after reactive NST. Pt to follow up with Dr. Irving next week Disposition - Disposition OB Disposition: Discharge to home Discharge Date: 10/27/18 Discharge Time: 13:55 I agree with the RN Medical Screening Exam: Yes Risk & Benefit of care provided described in d/c instruction: Yes Diagnosis: FALSE LABOR BEFORE 37 COMPLETED WEEKS OF GEST, THIRD TRI
== END 2018-10-27 13:55 | disposition home or self-care (01) ==
LOC: FBPOP 12:27
PROVIDERS: ATTEND Obstetrics & Gynecology
DX: O47.03 False labor before 37 completed weeks of gestation, third trimester (principal); O99.333 Smoking (tobacco) complicating pregnancy, third trimester; Z3A.34 34 weeks gestation of pregnancy
CPT/HCPCS: 59025; 84112; G0463; 99213

== ENCOUNTER 2018-11-02 14:50 | Outpatient (CLI) | payer OTHER ==
[2018-11-02 15:33] LABS: ALT 19 U/L (9-52); AST 11 U/L (14-36)
--- NOTE | 2018-11-02 17:04 | US ---
EXAMINATION TYPE: US OB BPP wo non-stress DATE OF EXAM: 11/02/2018 COMPARISON: OB US CLINICAL HISTORY: nonreactive nst . decreased movement per patient EXAM PERFORMED: Transabdominal (TA) BPP PARAMETERS: PRESENTATION: Vertex LIE: Longitudinal?? HEART RATE: 126 bpm RHYTHM: Normal MYRNA: 16.5cm DIAPHRAGM IMAGED: yes BPP SCORIN. Breathin (1 episode of breathing of 30 second duration in 30 minutes of scanning time) 2. Movement: 2 (at least 3 discrete body movements in 30 minutes) 3. Tone: 2 (1 episode of active flexion/extension of limb) 4. MYRNA: 2 (MYRNA index > 5cm) TOTAL SCORE: 8 / 8 Impression Normal exam.
[2018-11-02 17:09] VITALS: BP 139/72; PULSE 102; RESP 16; TEMP 96.6
--- NOTE | 2018-11-02 23:11 | P.MSEPDOC ---
Presenting Problems - Arrival Data Date of Arrival on Unit: 11/02/18 Time of Arrival on Unit: 14:52 Mode of Transport: Ambulatory - Complaint OB-Reason for Admission/Chief Complaint: NST Comment: nst, blood work Medical History - Information : 2 Para: 1 Term: 0 : 0 Abortions: Spontaneous or Elective: 0 Number of Living Children: 1 - Gestational Age Gestational Age by TONY (wks/days): 35 Weeks and 0 Days Review of Systems - Review of Systems Constitutional: No problems Breast: No problems ENT: No problems Cardiovascular: No problems Respiratory: No problems Gastrointestinal: No problems Genitourinary: No problems Musculoskeletal: No problems Neurological: No problems Skin: No problems Vital Signs - Temperature Temperature: 96.6 F - Pulse Right Pulse Rate: 102 Pulse Assessment Method: Automatic Cuff - Respirations Respiratory Rate: 16 Oxygen Delivery Method: Room Air - Blood Pressure Right Arm Blood Pressure: 139/72 Blood Pressure Mean: 94 Blood Pressure Source: Automatic Cuff Medical Screen Scoring (Pre) - Cervical Exam Dilation: Exam Deferred Effacement: Exam Deferred - Uterine Contractions Frequency: N/A Duration: N/A Intensity: N/A - Maternal Vital Signs Maternal Temperature: N/A Signs of Preeclampsia: N/A Maternal Respirations: N/A - Pain Assessment Pain Scale Used: Numeric (1 - 10) Pain Intensity: 0 - Maternal Trauma Maternal Trauma: N/A - Assessment Baseline FHR: 120 Heart Rate - NICHD Category: Category I (Normal) = 0 NST: Non-reactive = 3 Position: N/A - Total Score Total Score (Pre): 3 - Level of Risk Level of Risk: Low (0-5) Physician Notification (Pre) - Physician Notified Physician Notified Date: 11/02/18 Physician Notified Time: 15:50 Physician/Practitioner Notifed:: jed Spoke With: jed New Order Received: Yes - Notification Comment Comment: reported nonreactive jed wright orders bpp. results of bpp are 05/25. dr adkins in department, review current strip. discharge pt with follow up in office on friend for nst Disposition - Disposition OB Disposition: Discharge to home Discharge Date: 11/02/18 Discharge Time: 17:01 I agree with the RN Medical Screening Exam: Yes Risk & Benefit of care provided described in d/c instruction: Yes Diagnosis: TOXIC LIVER DISEASE WITH CHOLESTASIS
== END 2018-11-02 17:01 | disposition home or self-care (01) ==
LOC: FBPOP 14:50
PROVIDERS: ATTEND Obstetrics & Gynecology
DX: O99.613 Diseases of the digestive system complicating pregnancy, third trimester (principal); K71.0 Toxic liver disease with cholestasis; Z3A.35 35 weeks gestation of pregnancy
CPT/HCPCS: 76819; 82239; 84450; 84460

== ENCOUNTER 2018-12-05 05:28 | Outpatient (CLI) | payer OTHER ==
[2018-12-05 06:43] VITALS: BP 141/63; PULSE 81; RESP 18; TEMP 97.4
--- NOTE | 2018-12-05 08:50 | P.MSEPDOC ---
Presenting Problems - Arrival Data Date of Arrival on Unit: 12/05/18 Time of Arrival on Unit: 05:28 Mode of Transport: Wheelchair - Complaint OB-Reason for Admission/Chief Complaint: Possible Onset of Labor Comment: cramping and some bloody show Medical History - Information : 2 Para: 1 Term: 0 : 1 Abortions: Spontaneous or Elective: 0 Number of Living Children: 1 - Gestational Age Gestational Age by TONY (wks/days): 39 Weeks and 5 Days Review of Systems - Review of Systems Constitutional: No problems Breast: No problems ENT: No problems Cardiovascular: No problems Respiratory: No problems Gastrointestinal: No problems Genitourinary: No problems Musculoskeletal: No problems Neurological: No problems Skin: No problems Vital Signs - Temperature Temperature: 97.4 F Temperature Source: Axillary - Pulse Right Brachial Pulse Rate: 81 Pulse Assessment Method: Automatic Cuff - Respirations Respiratory Rate: 18 Oxygen Delivery Method: Room Air - Blood Pressure Right Arm Blood Pressure: 141/63 Blood Pressure Mean: 89 Blood Pressure Source: Automatic Cuff Medical Screen Scoring (Pre) - Cervical Exam Dilation: 1-3 cm = 1 Effacement: More than 50% = 2 Membranes: Intact - Uterine Contractions Frequency: > 5 minutes apart = 1 Duration: N/A Intensity: N/A - Maternal Vital Signs Maternal Temperature: N/A Maternal Blood Pressure: N/A Signs of Preeclampsia: N/A Maternal Respirations: N/A - Pain Assessment Pain Location and Character: Abdomen Pain Scale Used: Numeric (1 - 10) Pain Intensity: 2 Pain Description: *Acute, Cramping Pain Radiation Location: none Pain Frequency: Intermittent Pain Behavior: Vocalization Pain Aggravating Factors: Contractions - Maternal Trauma Maternal Trauma: N/A - Assessment Baseline FHR: 130 Heart Rate - NICHD Category: Category I (Normal) = 0 NST: Reactive Position: N/A Station: N/A - Total Score Total Score (Pre): 4 - Level of Risk Level of Risk: Low (0-5) Physician Notification (Pre) - Physician Notified Physician Notified Date: 12/05/18 Physician Notified Time: 06:40 Physician/Practitioner Notifed:: Dr. Dsouza Spoke With: Dr. Dsouza New Order Received: Yes - Notification Comment Comment: discharge pt home, follow up tomorrow for scheduled induction Disposition - Disposition OB Disposition: Discharge to home, Written follow up instructions reviewed Discharge Date: 12/05/18 Discharge Time: 06:43 I agree with the RN Medical Screening Exam: Yes Risk & Benefit of care provided described in d/c instruction: Yes Diagnosis: FALSE LABOR AT OR AFTER 37 COMPLETED WEEKS OF GESTATION
== END 2018-12-05 06:55 | disposition home or self-care (01) ==
LOC: FBPOP 05:28
PROVIDERS: ATTEND Obstetrics & Gynecology
DX: O47.1 False labor at or after 37 completed weeks of gestation (principal); Z3A.39 39 weeks gestation of pregnancy
CPT/HCPCS: 59025; G0463; 99213

== ENCOUNTER 2018-12-05 20:39 | Inpatient (IN) | payer OTHER ==
[2018-12-05] MEDS ORDERED: LIDOCAINE 0.5% (PF) 5 MG/ML (50 ML SDV) SQ PRN (21:02)
[2018-12-05] MEDS ORDERED: TERBUTALINE 1 MG/ML VIAL SQ PRN (21:02)
[2018-12-05] MEDS ORDERED: AMPICILLIN 2,000 MG in SODIUM CHLORIDE 0.9% 100 ML IVPB STA (21:02)
[2018-12-05] MEDS ORDERED: CARBOPROST TROMETHAMINE 250 MCG/ML 1 ML AMP IM PRN (21:02)
[2018-12-05] MEDS ORDERED: METHYLERGONOVINE 0.2 MG/ML 1 ML AMP IM PRN (21:02)
[2018-12-05] MEDS ORDERED: OXYTOCIN 10 UNIT/ML 1 ML VIAL IM PRN (21:02)
[2018-12-05] MEDS: LACTATED RINGERS 1,000 ML IV SCH ×3 (21:25→23:13)
[2018-12-05 21:32] VITALS: BMI 33.2
[2018-12-05 21:45] LABS: Basophils % (A) 0 %; Eosinophils # (A) 0.1 k/uL (0-0.7); Eosinophils % (A) 1 %; HGB 11.7 gm/dL (11.4-16.0); Lymphocytes # (A) 2.4 k/uL (1.0-4.8); Lymphocytes % (A) 20 %; MCH 32.3 pg (25.0-35.0); MCHC 33.5 g/dL (31.0-37.0); MCV 96.5 fL (80.0-100.0); Mean Platelet Volume 6.7; Monocytes # (A) 0.5 k/uL (0-1.0); Monocytes % (A) 4 %; Neutrophils # (A) 8.6 k/uL (1.3-7.7); Neutrophils % (A) 73 %; Platelet Count 196 k/uL (150-450); RBC 3.62 m/uL (3.80-5.40); RDW 13.5 % (11.5-15.5); WBC 11.7 k/uL (3.8-10.6)
[2018-12-05] MEDS ORDERED: fentaNYL (PF) 50 MCG/ML 5 ML AMP ONE (21:47)
[2018-12-05] MEDS ORDERED: SODIUM CHLORIDE 0.9% 100 ML BAG ONE (21:47)
[2018-12-05] MEDS ORDERED: ROPIVACAINE 5MG/ML 20ML VIAL ONE (21:47)
[2018-12-06] MEDS: AMPICILLIN 1,000 MG in SODIUM CHLORIDE 0.9% 50 ML IVPB SCH ×2 (01:52→05:49)
[2018-12-06] MEDS ORDERED: CITRIC ACID-SODIUM CITRATE 15 ML CUP PO ONE (02:28)
--- NOTE | 2018-12-06 07:28 | P.HPOB ---
History of Present Illness H&P Date: 12/06/18 Chief Complaint: Intrauterine at term: Active labor Alexandrea is a 28-year-old at 39 weeks 6/7 days gestation arise in active labor. She is making cervical change. She was covered for induction later today. Her Precis course was generally uncomplicated she does have a history of anxiety and depression but remained fine during the . She has a history of labor and did see maternal medicine for same. This was due to her last delivery at 36 weeks. She did receive progesterone injections and did not go into labor early this time. Her labs include B+ blood type, Rh antibody was negative, rubella immune, hepatitis B surface antigen negative RPR was negative. GBS was positive. On physical exam vital signs are stable and afebrile. Heart regular, lungs clear, extremities are without pain. Abdomen soft and nontender. Cervix was dilated to 4 cm at time of admission. Artificial rupture membranes was performed with patient dilated to 9 cm with light meconium noted. heart tracings were category 1. Past Medical History Past Medical History: No Reported History Additional Past Medical History / Comment(s): anxiety History of Any Multi-Drug Resistant Organisms: None Reported Past Surgical History: No Surgical Hx Reported Additional Past Surgical History / Comment(s): Surgery of her right cheek, wisdom tooth extraction Past Anesthesia/Blood Transfusion Reactions: No Reported Reaction Past Psychological History: Anxiety, Depression, PTSD Smoking Status: Current every day smoker Past Alcohol Use History: None Reported, Occasional Past Drug Use History: None Reported - Past Family History Mother Family Medical History: COPD, Hypertension, Thyroid Disorder Additional Family Medical History / Comment(s): Bipolar/Depression Medications and Allergies Home Medications Medication Instructions Recorded Confirmed Type Pnv No.95/Ferrous Fum/Folic AC 1 each PO DAILY 10/27/18 12/05/18 History [ Multivitamin Tablet] Allergies Allergy/AdvReac Type Severity Reaction Status Date / Time No Known Allergies Allergy Verified 12/05/18 21:01 Exam Osteopathic Statement: *. No significant issues noted on an osteopathic structural exam other than those noted in the History and Physical/Consult. Vital Signs Temp Pulse Resp BP 12/05/18 21:02 98.2 F 72 18 124/66 Intake and Output 12/05/18 12/06/18 12/06/18 22:59 06:59 14:59 Intake Total 1000 Output Total 400 Balance 1000 -400 Intake: Intake, IV Titration 1000 Amount Lactated Ringers 1,000 ml 1000 @ 125 mls/hr IV .Q8H [facility] Rx#:[id number] Output: Urine 400 Other: # Voids 1 Weight 102.058 kg - OBG Physical Exam Breast: both: normal (no masses) Abdomen: bowel sounds normal, no diffuse tenderness, no bruit present, no guarding noted, no hepatomegaly, no splenomegaly, no mass Vulva: both: normal Vagina: normal moisture, no discharge Cervix: no lesion, no discharge Uterus: normal size, normal contour Adnexa: both: normal Anus/Rectum: normal perianal skin, no rectal mass, no hemorrhoids, heme negative Results Result Diagrams: 12/05/18 21:30 Abnormal Lab Results - Last 24 Hours (Table) 12/05/18 Range/Units 21:30 WBC 11.7 H (3.8-10.6) k/uL RBC 3.62 L (3.80-5.40) m/uL Neutrophils # 8.6 H (1.3-7.7) k/uL
--- NOTE | 2018-12-06 07:29 | P.PROBDLV ---
Vaginal Delivery Note - . Vaginal Delivery Note: Patient progressed complete and pushing with spontaneous vaginal delivery of a viable female over a secondary midline laceration. Baby was delivered from straight occiput posterior position. Once baby was delivered mouth nares were bulb suctioned and baby was placed on mother's abdomen where the umbilical cord was pulsating 30 seconds prior to clamping and cutting. Nursery personnel was present to assume care. Placenta was then delivered intact. Pitocin was added to the IV. Secondary midline laceration repaired with 3-0 Vicryl following 1% Xylocaine for analgesia. There was also a right vaginal wall laceration that was repaired with 3-0 Vicryl in a running fashion also following Xylocaine for analgesia mother and baby are stable following delivery. scores were 9 and 9 at one and 5 minutes respectively and weight was 7 lbs. 1 oz.
[2018-12-06] MEDS ORDERED: ZOLPIDEM 5 MG TAB PO PRN (07:47)
[2018-12-06] MEDS ORDERED: SIMETHICONE 80 MG CHEWABLE PO PRN (07:47)
[2018-12-06] MEDS ORDERED: diphenhydrAMINE 50 MG CAP PO PRN (07:47)
[2018-12-06] MEDS ORDERED: HYDROCORTISONE 2.5% RECTAL CREAM 30 GM TUBE RECTAL PRN (07:47)
[2018-12-06] MEDS ORDERED: diphenhydrAMINE 25 MG CAP PO PRN (07:47)
[2018-12-06] MEDS ORDERED: WITCH HAZEL 1 EACH MED..PAD TOPICAL PRN (07:47)
[2018-12-06] MEDS ORDERED: BENZOCAINE/MENTHOL SPRAY 1 GM/SPRAY AEROSOL TOPICAL PRN (07:47)
[2018-12-06] MEDS ORDERED: LANOLIN CREAM 5 GM TUBE TOPICAL PRN (07:47)
[2018-12-06] MEDS ORDERED: diphenhydrAMINE 50 MG/ML 1 ML VIAL IVP PRN ×2 (07:47)
[2018-12-06] MEDS: SENNOSIDES-DOCUSATE SODIUM 1 EACH TAB PO SCH ×2 (07:55→20:10)
[2018-12-06] MEDS: IBUPROFEN 600 MG TAB PO PRN ×2 (07:58→15:19)
[2018-12-06] MEDS ORDERED: OXYTOCIN 20 UNITS/1000 ML NS 1,000 ML IV SCH (08:00)
[2018-12-06] MEDS: ACETAMINOPHEN TAB 325 MG TAB PO PRN (11:41)
[2018-12-06] MEDS ORDERED: INFLUENZA VACCINE (6 MOS+) 60 MCG/0.5 ML SYRINGE IM ONE (11:46)
[2018-12-06] MEDS ORDERED: DIPH,PERTUS(ACELL)TETVAC-LF 0.5 ML VIAL IM ONE (11:47)
[2018-12-06] MEDS: HYDROcodone/APAP 5-325MG 1 EACH TAB PO PRN ×2 (17:33→23:05)
[2018-12-07] MEDS: IBUPROFEN 600 MG TAB PO PRN (01:54)
[2018-12-07] MEDS: HYDROcodone/APAP 5-325MG 1 EACH TAB PO PRN (05:59)
[2018-12-07 07:39] LABS: Basophils % (A) 0 %; Eosinophils # (A) 0.1 k/uL (0-0.7); Eosinophils % (A) 1 %; Lymphocytes # (A) 2.3 k/uL (1.0-4.8); Lymphocytes % (A) 22 %; MCHC 34.2 g/dL (31.0-37.0); MCV 99.6 fL (80.0-100.0); Mean Platelet Volume 6.5; Monocytes # (A) 0.5 k/uL (0-1.0); Monocytes % (A) 5 %; Neutrophils # (A) 7.4 k/uL (1.3-7.7); Neutrophils % (A) 70 %; Platelet Count 158 k/uL (150-450); RBC 2.61 m/uL (3.80-5.40); RDW 13.6 % (11.5-15.5); WBC 10.5 k/uL (3.8-10.6)
[2018-12-07] MEDS: SENNOSIDES-DOCUSATE SODIUM 1 EACH TAB PO SCH (07:55)
[2018-12-07] MEDS: ACETAMINOPHEN TAB 325 MG TAB PO PRN (07:56)
[2018-12-07 07:58] LABS: HGB 8.9 gm/dL (11.4-16.0)
[2018-12-07 08:04] VITALS: BP 109/59; PULSE 73; RESP 16; TEMP 97.9
--- NOTE | 2018-12-07 08:50 | P.DS ---
Providers Date of admission: 12/05/18 20:55 Expected date of discharge: 12/07/18 Attending physician: Simona Irving Primary care physician: Stated None - Discharge Diagnosis(es) (1) Normal vaginal delivery Current Visit: Yes Status: Acute Hospital Course: Pt presented in active labor. She underwent normal vaginal delivery. HEr pp course was uncomplicated. She will be discharged home PPD #1 in stable condition to follow up with me in 6 weeks. Plan - Discharge Summary New Discharge Prescriptions: No Action Pnv No.95/Ferrous Fum/Folic AC [ Multivitamin Tablet] 1 each PO DAILY Discharge Medication List Pnv No.95/Ferrous Fum/Folic AC [ Multivitamin Tablet] 1 each PO DAILY [History] Follow up Appointment(s)/Referral(s): Simona Irving DO [Doctor of Osteopathic Medicine] - 6 Weeks Discharge Disposition: HOME SELF-CARE
== END 2018-12-07 10:45 | disposition home or self-care (01) | DRG 806 ==
LOC: FBPOP 20:39 → 4FBP 20:55
PROVIDERS: ADMIT Obstetrics & Gynecology; ATTEND Obstetrics & Gynecology
PROC: 10E0XZZ Delivery of Products of Conception, External Approach (ICD-10-PCS; principal; 2018-12-06)
PROC: 0KQM0ZZ Repair Perineum Muscle, Open Approach (ICD-10-PCS; 2018-12-06)
PROC: 00HU33Z Insertion of Infusion Device into Spinal Canal, Percutaneous Approach (ICD-10-PCS; 2018-12-06)
PROC: 3E0R3BZ Introduction of Anesthetic Agent into Spinal Canal, Percutaneous Approach (ICD-10-PCS; 2018-12-06)
DX: O77.0 Labor and delivery complicated by meconium in amniotic fluid (principal); O71.4 Obstetric high vaginal laceration alone; Z37.0 Single live birth; O99.344 Other mental disorders complicating childbirth; O99.334 Smoking (tobacco) complicating childbirth; F17.200 Nicotine dependence, unspecified, uncomplicated; F32.9 Major depressive disorder, single episode, unspecified; F43.10 Post-traumatic stress disorder, unspecified; F41.9 Anxiety disorder, unspecified; O99.824 Streptococcus B carrier state complicating childbirth; O99.62 Diseases of the digestive system complicating childbirth; K21.9 Gastro-esophageal reflux disease without esophagitis; Z3A.39 39 weeks gestation of pregnancy; Z81.8 Family history of other mental and behavioral disorders; Z82.49 Family history of ischemic heart disease and other diseases of the circulatory system; Z82.5 Family history of asthma and other chronic lower respiratory diseases; Z83.49 Family history of other endocrine, nutritional and metabolic diseases
CPT/HCPCS: 59025; 85025; 86850; 86900; 86901; 90471; 90472; 90686; 90715; 99213

== ENCOUNTER 2019-05-29 06:22 | Day surgery (SDC) | payer OTHER ==
[~2019-05-29 06:22] MED LIST: Pre Op ABX Message 1 EACH MISC MISCELLANE ONE
--- NOTE | 2019-05-29 07:00 | P.HPOB ---
History of Present Illness H&P Date: 05/29/19 Chief Complaint: Family Planning 28 year old presents for laparoscopic tubal ligation. Review of Systems All systems: negative Constitutional: Denies chills, Denies fever Eyes: denies blurred vision, denies pain Ears, nose, mouth and throat: Denies headache, Denies sore throat Cardiovascular: Denies chest pain, Denies shortness of breath Respiratory: Denies cough Gastrointestinal: Denies abdominal pain, Denies diarrhea, Denies nausea, Denies vomiting Genitourinary: Denies dysuria, Denies hematuria Musculoskeletal: Denies myalgias Integumentary: Denies pruritus, Denies rash Neurological: Denies numbness, Denies weakness Psychiatric: Denies anxiety, Denies depression Endocrine: Denies fatigue, Denies weight change Past Medical History Past Medical History: No Reported History History of Any Multi-Drug Resistant Organisms: None Reported Past Surgical History: No Surgical Hx Reported Additional Past Surgical History / Comment(s): Surgery of her right cheek, wisdom tooth extraction Past Anesthesia/Blood Transfusion Reactions: No Reported Reaction Past Psychological History: Anxiety, Depression, PTSD Smoking Status: Current every day smoker Past Alcohol Use History: None Reported, Rare Past Drug Use History: None Reported - Past Family History Mother Family Medical History: COPD, Hypertension, Thyroid Disorder Additional Family Medical History / Comment(s): Bipolar/Depression Medications and Allergies Home Medications Medication Instructions Recorded Confirmed Type FLUoxetine HCL [PROzac] 40 mg PO DAILY 05/29/19 05/29/19 History clonazePAM 0.5 mg PO BID 05/29/19 05/29/19 History lamoTRIgine [LaMICtal] 100 mg PO DAILY 05/29/19 05/29/19 History Allergies Allergy/AdvReac Type Severity Reaction Status Date / Time No Known Allergies Allergy Verified 05/29/19 06:51 Exam Osteopathic Statement: *. No significant issues noted on an osteopathic structural exam other than those noted in the History and Physical/Consult. Heart: RRR Lungs: CTAB Abdomen: soft, nontender Extremeties: neg esteban's Assessment and Plan (1) Family planning Current Visit: No Status: Acute Code(s): Z30.09 - ENCOUNTER FOR OTH GENERAL CNSL AND ADVICE ON CONTRACEPTION SNOMED Code(s): 516354533 Plan: 1. laparoscopic tubal ligation
[2019-05-29] MEDS ORDERED: LACTATED RINGERS 1,000 ML IV ONE (07:15)
[2019-05-29] MEDS ORDERED: LIDOCAINE 1% 20 ML VIAL (10MG/ML) FOR IV START INTRADERMA ONE (07:15)
[2019-05-29] MEDS ORDERED: DEXAMETHASONE SOD PHOS (MDV) 100 MG/10 ML VIAL IVP ONE (07:21)
[2019-05-29] MEDS ORDERED: SCOPOLAMINE 1.5MG/72HR PATCH TRANSDERM ONE ×2 (07:21→07:30)
[2019-05-29] MEDS ORDERED: ONDANSETRON 4 MG/2 ML VIAL IVP ONE ×2 (07:21→07:30)
[2019-05-29] MEDS ORDERED: BUPIVACAINE (PF) 0.25% 30 ML VIAL SQ ONE ×2 (07:23)
[2019-05-29] MEDS ORDERED: PROPOFOL 10 MG/ML 20 ML VIAL IV ONE (07:25)
[2019-05-29] MEDS ORDERED: HYDROmorphone (PF) 1 MG/ML ONE (07:25)
[2019-05-29] MEDS ORDERED: LIDOCAINE 1% INJ 10MG/ML (20 ML MDV) ONE (07:25)
[2019-05-29] MEDS ORDERED: ROCURONIUM BROMIDE 10 MG/ML 10 ML VIAL IV ONE (07:25)
[2019-05-29] MEDS ORDERED: MIDAZOLAM 2 MG/2 ML VIAL ONE (07:25)
[2019-05-29] MEDS ORDERED: KETOROLAC 30 MG/ML 1 ML VIAL ONE (07:25)
[2019-05-29] MEDS ORDERED: SUCCINYLCHOLINE CHLORIDE 100 MG/5 ML SYR IV ONE (07:25)
[2019-05-29] MEDS ORDERED: NEOSTIGMINE 1 MG/ML 10 ML VIAL ONE (07:25)
[2019-05-29] MEDS ORDERED: GLYCOPYRROLATE 0.2 MG/ML 2 ML VIAL ONE (07:25)
[2019-05-29] MEDS ORDERED: fentaNYL (PF) 50 MCG/ML 2 ML AMP ONE (07:25)
[2019-05-29] MEDS ORDERED: ONDANSETRON 4 MG/2 ML VIAL IVP PRN (07:30)
[2019-05-29] MEDS ORDERED: HYDROmorphone 0.5 MG/0.5 ML SYRINGE IVP PRN (07:30)
[2019-05-29] MEDS ORDERED: DEXAMETHASONE SOD PHOSPHATE 10 MG/ML 1 ML VIAL IV ONE (07:30)
[2019-05-29] MEDS ORDERED: LACTATED RINGERS 1,000 ML IV SCH (07:30)
[2019-05-29] MEDS ORDERED: LIDOCAINE 1% 20 ML VIAL (10MG/ML) FOR IV START INTRADERMA PRN (07:30)
[2019-05-29 08:13] VITALS: TEMP 97.6
[2019-05-29] MEDS ORDERED: KETOROLAC 30 MG/ML 1 ML VIAL IVP ONE (08:13)
[2019-05-29 08:18] VITALS: RESP 18
--- NOTE | 2019-05-29 08:57 | P.OP ---
Date of Procedure: 05/29/19 Preoperative Diagnosis: 1. Family Planning Postoperative Diagnosis: 1. Family Planning Procedure(s) Performed: Laparoscopic tubal ligation Anesthesia: BETHEL Surgeon: Simona Irving Estimated Blood Loss (ml): 5 IV fluids (ml): 500 Urine output (ml): 50 Pathology: none sent Condition: stable Disposition: PACU Operative Findings: Normal uterus, tubes, ovaries. Uterus sounded to 9 cm. Description of Procedure: Patient was taken to the operating room where general anesthesia was obtained without difficulty. She was prepped and draped in normal sterile fashion in the dorsal lithotomy position, legs placed in the Justin stirrups. Bladder drained of all urine. Ferdinand speculum placed in the vagina and the anterior lip the cervix was grasped with single-tooth tenaculum. The uterus is sounded to 9 cm and the kroner manipulator was placed. Attention was then turned to the abdomen and gloves were changed. A 10 mm infraumbilical incision was made the scalpel and 10 mm optical trocar was placed under direct visualization. A 5 mm suprapubic Incision was made and a 5 mm optical trocar was placed under direct visualization. Survey of the pelvis revealed normal uterus tubes and ovaries. The left fallopian tube was grasped with a Kleppinger and fulgurated 2-3 cm on this side in the ampullar portion. The right fallopian tube was grasped with a Kleppinger and fulgurated 2-3 cm in the ampullar portion. All instruments were then removed from the abdomen and vagina. The 10 mm infraumbilical incision was closed with 0 Vicryl and the fascial layer and then 4-0 Vicryl in a subcuticular fashion. The 5 mm incision was closed with 4-0 Vicryl in a subcuticular fashion. Patient tolerated procedure well, sponge and instrument counts correct 2 and she was taken to recovery room in stable condition.
[2019-05-29 09:50] VITALS: BP 98/60; PULSE 58
[2019-05-29] MEDS ORDERED: KETOROLAC 30 MG/ML 1 ML VIAL IVP SCH (12:00)
== END 2019-05-29 10:33 | disposition home or self-care (01) ==
LOC: OR 06:22
PROVIDERS: ATTEND Obstetrics & Gynecology
DX: Z30.2 Encounter for sterilization (principal); F41.9 Anxiety disorder, unspecified; F32.9 Major depressive disorder, single episode, unspecified; F43.10 Post-traumatic stress disorder, unspecified; F17.210 Nicotine dependence, cigarettes, uncomplicated; Z79.899 Other long term (current) drug therapy; Z82.5 Family history of asthma and other chronic lower respiratory diseases; Z82.49 Family history of ischemic heart disease and other diseases of the circulatory system; Z81.8 Family history of other mental and behavioral disorders; Z83.49 Family history of other endocrine, nutritional and metabolic diseases
CPT/HCPCS: 58670; 81025; J2250; J2710; J2405; J2001; J3010; J1885; J1170; J1100; J0330; J2704

== ENCOUNTER 2021-03-12 13:27 | Emergency (ER) | payer OTHER ==
[2021-03-12 13:31] VITALS: BP 146/103; PULSE 75; RESP 16; TEMP 98
--- NOTE | 2021-03-12 14:32 | ED ---
ENT HPI - General Chief complaint: Dental/Oral Stated complaint: abscess tooth Time Seen by Provider: 03/12/21 14:10 Source: patient, RN notes reviewed Mode of arrival: ambulatory Limitations: no limitations - History of Present Illness Initial comments: 30-year-old female, well-appearing alert and oriented 4. presents to the emergency room with 6 weeks of abscess to the right upper gum line. Patient states has not changed size but is increasingly tender. Cannot get into her dentist because she hasn't shown up for 3 appointments. Patient denies any other medical history. Denies any medications on a daily basis. Does vape occasionally. MD complaint: other (Dental abscess) -: week(s) (6) Location: other (Upper gumline) Severity scale (1-10): 8 Consistency: constant Improves with: none Worsens with: eating Associated Symptoms: gum swelling - Related Data Home Medications Medication Instructions Recorded Confirmed FLUoxetine HCL [PROzac] 40 mg PO DAILY 05/29/19 05/29/19 clonazePAM 0.5 mg PO BID 05/29/19 05/29/19 lamoTRIgine [LaMICtal] 100 mg PO DAILY 05/29/19 05/29/19 Previous Rx's Medication Instructions Recorded Acetaminophen-Codeine 300-30mg 2 tab PO Q6H PRN #20 tablet 05/29/19 [Tylenol #3] Ibuprofen [Motrin] 600 mg PO Q6HR PRN #30 tab 05/29/19 Ibuprofen [Motrin] 800 mg PO Q6HR #30 tab 03/12/21 Penicillin V Potassium [Pen Vee K] 500 mg PO QID 10 Days #40 tablet 03/12/21 Allergies Allergy/AdvReac Type Severity Reaction Status Date / Time No Known Allergies Allergy Verified 03/12/21 13:28 Review of Systems ROS Statement: Those systems with pertinent positive or pertinent negative responses have been documented in the HPI. ROS Other: All systems not noted in ROS Statement are negative. Past Medical History Past Medical History: No Reported History Additional Past Medical History / Comment(s): anxiety History of Any Multi-Drug Resistant Organisms: None Reported Past Surgical History: No Surgical Hx Reported Additional Past Surgical History / Comment(s): Surgery of her right cheek, wisdom tooth extraction Past Anesthesia/Blood Transfusion Reactions: No Reported Reaction Past Psychological History: Anxiety, Depression, PTSD Smoking Status: Never smoker Past Alcohol Use History: None Reported, Rare Past Drug Use History: None Reported - Past Family History Mother Family Medical History: COPD, Hypertension, Thyroid Disorder Additional Family Medical History / Comment(s): Bipolar/Depression General Exam Limitations: no limitations General appearance: alert, in no apparent distress Head exam: Present: atraumatic, normocephalic, normal inspection Eye exam: Present: normal appearance, PERRL, EOMI. Absent: scleral icterus, conjunctival injection, periorbital swelling ENT exam: Present: normal oropharynx, mucous membranes moist, other (3 mm abscess noted above tooth #9) Neck exam: Present: normal inspection, full ROM. Absent: tenderness, meningismus, lymphadenopathy, thyromegaly Respiratory exam: Present: normal lung sounds bilaterally. Absent: respiratory distress, wheezes, rales, rhonchi, stridor Cardiovascular Exam: Present: regular rate, normal rhythm, normal heart sounds. Absent: systolic murmur, diastolic murmur, rubs, gallop, clicks Extremities exam: Present: full ROM, normal capillary refill Back exam: Present: full ROM. Absent: tenderness Neurological exam: Present: alert, oriented X3, CN II-XII intact Psychiatric exam: Present: normal affect, normal mood Skin exam: Present: warm, dry, intact, normal color. Absent: rash Course Vital Signs 03/12/21 13:28 Temperature 98.0 F Pulse Rate 75 Respiratory 16 Rate Blood Pressure 146/103 O2 Sat by Pulse 98 Oximetry Medical Decision Making - Medical Decision Making 3 mm gingival abscess above tooth #9 the patient has had for 6 weeks. Patient has no systemic symptoms, no fever, no nausea vomiting. Patient states pain 8 out of 10 and is requesting Motrin and antibiotics so that she can follow up with dentist. There is no cervical or submandibular lymphadenopathy. Patient will be treated with antibiotics and Motrin with instructions to follow up with dentist this week. Case discussed with Dr Ritchie who was agreeable to this plan Disposition Clinical Impression: Gingival abscess Disposition: HOME SELF-CARE Condition: Good Instructions (If sedation given, give patient instructions): Dental Abscess (ED) Additional Instructions: Take medication as prescribed and follow-up with the dentist within the next week. Prescriptions: Ibuprofen [Motrin] 800 mg PO Q6HR #30 tab Penicillin V Potassium [Pen Vee K] 500 mg PO QID 10 Days #40 tablet Is patient prescribed a controlled substance at d/c from ED?: No Referrals: None,Stated [Primary Care Provider] - 1-2 days Time of Disposition: 14:33
[2021-03-12] MEDS ORDERED: IBUPROFEN 800 MG TAB PO STA (14:33)
== END 2021-03-12 14:59 | disposition home or self-care (01) ==
LOC: EC 13:27
DX: K05.319 Chronic periodontitis, localized, unspecified severity (principal); F32.9 Major depressive disorder, single episode, unspecified
CPT/HCPCS: 99283